=== PATIENT | female | born 1985 ===

== ENCOUNTER 2016-09-20 13:25 | Emergency (ER) | payer OTHER ==
[~2016-09-20] VITALS: Ht 167.6 cm; Wt 88.5 kg
[2016-09-20 13:34] VITALS: BP 168/96
--- NOTE | 2016-09-20 13:51 | ED GENERAL ADULT ---
History of Present Illness General Chief Complaint: General Adult Stated Complaint: ?OD,ANXIETY Source: patient, old records Exam Limitations: no limitations Vital Signs & Intake/Output Vital Signs & Intake/Output Vital Signs Date Time Temp Pulse Resp B/P Pulse O2 O2 Flow FiO2 Ox Delivery Rate 09/20 1414 100 Room Air 09/20 1334 97.3 102 20 168/96 97 Room Air Room Air Allergies Coded Allergies: wheat (Intermediate, GI DISTRESS 09/20/16) Reconcile Medications Bupropion HCl (Bupropion XL) 150 MG TAB.ER.24H 2 TAB PO QAM MENTAL HEALTH ( Reported) Triage Note: PT TO ED WITH C/O "I JUST WELLBUTRIN ON September, TOOK DOSE ON THE LATE SIDE AND THEN TOOK REGULAR MORNING DOSE THIS MORNING, SO IT WAS WITHIN 10 HOURS, SO I'M WORRIED THAT IS TOO MUCH". WELLBUTRIN 300MG DAILY IS NORMAL DOSE. Triage Nurses Notes Reviewed? yes Onset: Abrupt Duration: day(s): (1), constant Timing: recent history Injury Environment: home Severity: mild Severity Numbers: 4 No Modifying Factors: none Associated Symptoms: denies : No Patient currently breastfeeds: No HPI: 30-year-old female with history of depression and anxiety recently started on Wellbutrin 300 mg once a day on September 09 presents emergency room for evaluation today anxious and concerned after she states she forgot to take her dose yesterday morning. She states that she took her 300 mg at 10:00 last night and then took her regular dose at 8:30 this morning. The patient denies wanting to harm herself worsening depression or anxiety. She states that she was in her normal state of health. This morning she states since taking her second dose she has been feeling anxious and shaky. She denies palpitations chest pain fever chills rashes to her skin. She is not taken any other medication on a regular basis denies alcohol or drug use. (JENNIFER SCHULZ,MARY CARMEN) Past History Travel History Traveled to [place] past 21 day No Medical History Any Pertinent Medical History? 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 No (MARY CARMEN MUNSON) Review of Systems Review of Systems Constitutional: Reports: see HPI. All Other Systems: Reviewed and Negative Comments Review of systems: See HPI, All other systems negative. Constitutional, no chills no fever, no malaise HEENT: no sore throat no congestion, no ear pain Cardiovascular: No chest pain , no palpitation Skin, no rashes, no change in skin Respiratory: No dyspnea no cough no sputum GI: No nausea no vomiting, no diarrhea : No dysuria Muscle skeletal: No joint pain, no back pain, no neck pain, Neurologic: No numbness , no headache Psych: stress no anxiety no depression,. Heme/endocrine: No bruising no bleeding Immunology: No lymphadenopathy (MARY CARMEN MUNSON) Physical Exam Physical Exam General Appearance: well developed/nourished, no apparent distress, alert, awake , anxious Comments: Well-developed well-nourished patient in no apparent distress. HEENT: Atraumatic, extraocular motion intact no lesions or rash noted to the oral mucosa Neck: Supple, FROM, Back: FROM Cardiovascular: Regular rate and rhythms no murmurs rubs or gallops, Respiratory: Chest nontender.There were no bony deformities, no asymmetry. No respiratory distress. Patient speaking in full complete sentences. Breath sounds clear to auscultation bilaterally: NO W/R/R Extremities: full range of motion Neuro: Alert and oriented x3 Skin: Warm & dry;No appreciable rash on exposed skin Psych: Mood affect normal, normal memory normal judgment. Core Measures ACS in differential dx? No CVA/TIA Diagnosis: No Severe Sepsis Present: No Septic Shock Present: No (MARY CARMEN MUNSON) Progress Differential Diagnoses I considered the following diagnoses in my evaluation of the patient: [ Wellbutrin overdose, hypertension arrhythmia seizure disorder Plan of Care: Orders Procedure Date/time Status EKG 09/20 1336 Active I discussed with the patient her EKG findings need to hold her dose tomorrow," up with primary care physician in 24-48 hours. Patient clinically appears well EKG reveals a sinus tachycardia at 100 A she denies pain fever chills otherwise clinically appears well she feels comfortable this plan this was not an attempt to harm herself she would feels well otherwise advised return anytime sooner with any concerns cleared for discharge (MARY CARMEN MUNSON) Initial ED EKG: sinus tach at 100, no acute ST segment changes normal axis (MARY CARMEN MUNSON) Departure Departure Time of Disposition: 1402 Disposition: HOME OR SELF CARE Condition: Stable Clinical Impression Primary Impression: Medication administered in error Referrals: REYES FELIX (PCP/Family) Additional Instructions: Take your medications as prescribed. Drink plenty of fluids, follow up with your primary care physician tomorrow, return to the emergency room at anytime sooner with any concerns Departure Forms: Customer Survey General Discharge Information (MARY CARMEN MUNSON) PA/VEHICLE ASSEMBLER Co-Sign Statement Statement: ED Attending supervision documentation- [] I saw and evaluated the patient. I have also reviewed all the pertinent lab results and diagnostic results. I agree with the findings and the plan of care as documented in the PA's/VEHICLE ASSEMBLER's documentation. [X] I have reviewed the ED Record and agree with the PA's/VEHICLE ASSEMBLER's documentation. [] Additions or exceptions (if any) to the PAs/VEHICLE ASSEMBLER's note and plan are summarized below: [] (MEGAN PENNY,ALETHEA Sweet) Critical Care Note Critical Care Note Critical Care Time: non-applicable (MARY CARMEN MUNSON)
[2016-09-20] MEDS ORDERED: BUPROPION XL150 MG PO (13:53)
== END 2016-09-20 14:14 ==
LOC: ERH 13:25
DX: T43.291A Poisoning by other antidepressants, accidental (unintentional), initial encounter (principal); F41.9 Anxiety disorder, unspecified
CPT/HCPCS: 93005; 93010

== ENCOUNTER 2017-07-15 20:19 | Emergency (ER) | payer OTHER ==
[~2017-07-15 20:19] MED LIST: BUPROPION XL150 MG PO
--- NOTE | 2017-07-15 20:53 | ED GI/GU/ABDOMINAL COMPLAINT ---
History of Present Illness General Chief Complaint: General Adult Stated Complaint: "ABD PAIN, NAUSEA" Source: patient Exam Limitations: no limitations Vital Signs & Intake/Output Vital Signs & Intake/Output Vital Signs Date Time Temp Pulse Resp B/P B/P Pulse O2 O2 Flow FiO2 Mean Ox Delivery Rate 07/15 2029 97.9 83 22 147/81 Allergies Coded Allergies: wheat (Intermediate, GI DISTRESS 09/20/16) gluten (CELIACS 07/15/17) Reconcile Medications Albuterol Sulfate (Proair Hfa) 90 MCG HFA.AER.AD 2 PUF INH PRN RESP. ( Reported) Biotin (Unknown Strength) TABLET (Unknown Dose) PO DAILY SUPPLEMENT (Reported ) Dicyclomine Hydrochloride (Bentyl) 10 MG CAPSULE 1 CAP PO TID PRN ABDOMINAL PAIN Lisinopril 20 MG TABLET 1 TAB PO DAILY BP (Reported) Multivitamin With Minerals (Multiple Vitamin) 1 EACH TABLET 1 TAB PO DAILY SUPPLEMENT (Reported) Ondansetron (Zofran Odt) 4 MG TAB.RAPDIS 1 TAB SL TID PRN NAUSEA Triage Note: PER PT ABD PAIN TO RLQ X 2 DAYS DULL NOW SHARP,LMP 06/29/17 ALSO CO NAUSEA NO VOMITING NO FEVERS Triage Nurses Notes Reviewed? yes LMP (ages 10-50): date (06/29) ? N Is pt currently ? No Onset: Abrupt Duration: day(s): (2), constant, continues in ED, getting worse Timing: single episode today Quality/Severity: cramping, dullness Severity Numbers: 6 Location: right lower quadrant, right upper quadrant Radiation: no radiation Activities at Onset: none Prior Abdominal Problems: none Past Sexual History: Unobtainable at this time No Modifying Factors: none Modifying Factors: Worsens With: movement, palpation. Associated Symptoms: abdominal pain, nausea/vomiting, ALTERNATING DIArrhea and constipation HPI: 31 year old female with hx of celiacs disease. presents for eval of abdominal pain. pain stated 2 days ago and has been constant. pain loctaed in ruq and rlq and does nto radiate. described as cramping and dull. 12/11 currently. she has not take any meds for pain. associated with nausea but no vomiting. she also reprots alternating diarrhea and constipation for weeks. she has a hx of celiacs but does not see gi or follow a gluten free diet. no melena, fever, back jazmine, urinary symptoms, vaginal bleeding, chest pain or sob, or rash. (Yao Marks) Past History Travel History Traveled to [place] past 21 day No Medical History Any Pertinent Medical History? 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 No (Yao Marks) Review of Systems Review of Systems Constitutional: Reports: no symptoms. EENTM: Reports: no symptoms. Respiratory: Reports: no symptoms. Cardiovascular: Reports: no symptoms. GI: Reports: see HPI, abdominal pain, nausea. Genitourinary: Reports: no symptoms. Musculoskeletal: Reports: no symptoms. Skin: Reports: no symptoms. Neurological/Psychological: Reports: no symptoms. Hematologic/Endocrine: Reports: no symptoms. Immunologic/Allergic: Reports: no symptoms. All Other Systems: Reviewed and Negative (Yao Marks) Physical Exam Physical Exam General Appearance: well developed/nourished, no apparent distress, alert, awake Head: atraumatic, normal appearance Eyes: Bilateral: normal appearance, PERRL, EOMI, normal inspection. Ears, Nose, Throat, Mouth: hearing grossly normal, moist mucous membrane Neck: normal inspection, supple, full range of motion Respiratory: normal breath sounds, chest non-tender, no respiratory distress, lungs clear Cardiovascular: regular rate/rhythm, normal peripheral pulses Peripheral Pulses: 2+ radial (R), 2+ radial (L) Gastrointestinal: normal bowel sounds, non-tender, no organomegaly, tenderness ( ruq and rlq) Back: normal inspection, normal range of motion, no cvat Extremities: normal range of motion Neurologic/Psych: no motor/sensory deficits, awake, alert, oriented x 3, normal gait Skin: intact, normal color, warm/dry Core Measures ACS in differential dx? No Sepsis Present: No Sepsis Focused Exam Completed? No (Yao Marks) Progress Differential Diagnosis: appendicitis, biliary colic, bowel obstruction, cholecystitis, diverticulitis, ectopic , gastritis, kidney stone, ovarian cyst, ovarian torsion, pancreatitis, PID/cervicitis, peptic ulcer, PUD/ GERD, SBO, UTI/pyelo, ibs, celiac Plan of Care: Orders Procedure Date/time Status URINALYSIS 07/15 2213 Complete LIPASE 07/15 2030 Complete HEPATIC FUNCTION PANEL 07/15 2030 Complete HUMAN BETA HCG SCREEN 07/15 2030 Complete CBC WITHOUT DIFFERENTIAL 07/15 2030 Complete BASIC METABOLIC PANEL 07/15 2030 Complete AMYLASE 07/15 2030 Complete Laboratory Tests 07/15/17 2255: Urine Color YEL, Urine Clarity CLEAR, Urine pH 7.0, Ur Specific Hines <= 1.005 , Urine Protein NEG, Urine Ketones NEG, Urine Nitrite NEG, Urine Bilirubin NEG, Urine Urobilinogen 0.2, Ur Leukocyte Esterase NEG, Ur Microscopic EXAM NOT REQUIRED, Urine Hemoglobin NEG, Urine Glucose NEG 07/15/172100: Total Beta HCG Cancelled 07/15/17 2100: Anion Gap 16, Estimated GFR > 60, BUN/Creatinine Ratio 23.3, Glucose 92, Calcium 10.3 H, Total Bilirubin 0.2, Direct Bilirubin 0.2, AST 21, ALT 33, Alkaline Phosphatase 63, Total Protein 8.1, Albumin 4.8, Amylase 68, Lipase 167, Total Beta HCG NEGATIVE, CBC w Diff NO MAN DIFF REQ, RBC 4.26, MCV 93.8, MCH 30.8, RDW 13.7, MPV 9.5, Gran % 60.4, Lymphocytes % 29.0, Monocytes % 8.0, Eosinophils % 2.1, Basophils % 0.5, Absolute Granulocytes 5.7, Absolute Lymphocytes 2.7, Absolute Monocytes 0.8 H, Absolute Eosinophils 0.2, Absolute Basophils 0, PUBS MCHC 32.8 L pt seen and evaluated, she has rlq and ruq pain for 2 days. she appearts clinicaly well. blood work ct and ua are unremarkable. on reeval after toradol and zofran pt is feeling better, she abdomen remains soft with only mild tendrness. she is able to tolertae food and fluids by mouth in the ed. advised her to avoid gluten and greasy fatty foods. tylenol and ibbuprofen as needed. bentyl for abdominal pain zofran for nausea. follwo up with gi. discussed return precautions pt is nontoxic appearing and agrees,. Diagnostic Imaging: Viewed by Me: CT Scan. Discussed w/RAD: CT Scan. Radiology Impression: PATIENT: EUSEBIO LAY PRESENT AGE: 31 PATIENT ACCOUNT NO: [id number] : 86 LOCATION: [facility] ORDERING PHYSICIAN: Yao SCHULZ SERVICE DATE: 07/15/17 EXAM TYPE: CAT - CT ABD & PELVIS W IV CONTRAST EXAMINATION: CT ABDOMEN AND PELVIS WITH CONTRAST CLINICAL INFORMATION: Right upper quadrant pain. Right lower quadrant pain. COMPARISON: None TECHNIQUE: Multidetector volumetric imaging was performed of the abdomen and pelvis following IV administration of 95 mL of Optiray 320 intravenous contrast. Sagittal and coronal reformatted images were obtained on the technologist's workstation. DLP: 565.96 mGy-cm FINDINGS: LUNG BASES: The visualized lung bases are unremarkable. LIVER, GALLBLADDER, AND BILIARY TREE: The liver is normal in size, shape, and attenuation. No focal hepatic lesion or biliary ductal dilatation is present. Gallbladder is contracted. No bile duct dilatation. PANCREAS: Unremarkable. SPLEEN: Unremarkable. ADRENAL GLANDS: Unremarkable. KIDNEYS AND URETERS: The kidneys are normal in size, shape, and attenuation. No hydronephrosis, hydroureter, or calculi seen. No perinephric stranding. BLADDER: Unremarkable. GASTROINTESTINAL TRACT: The small and large bowel are unremarkable. The appendix is unremarkable. ABDOMINAL WALL: No significant hernia is appreciated. LYMPH NODES: Normal. VASCULAR: Unremarkable. PELVIC VISCERA: Uterus is anteverted. There is trace fluid in the cul-de-sac. No adnexal abnormality. OSSEOUS STRUCTURES: Unremarkable. IMPRESSION: Normal CT scan abdomen and pelvis. Normal appendix. DICTATED BY: Tanner Cardenas MD DATE/TIME DICTATED:07/15/172226 GAS CUTTING MACHINE OPERATOR:INÉS DATE/TIME TRANSCRIBED:2226 CONFIDENTIAL, DO NOT COPY WITHOUT APPROPRIATE AUTHORIZATION. Initial ED EKG: none (Chadd SCHULZ,Yao) Departure Departure Disposition: HOME OR SELF CARE Condition: Stable Clinical Impression Primary Impression: Abdominal pain Qualifiers: Abdominal location: generalized Qualified Code: R10.84 - Generalized abdominal pain Referrals: Mona PENNY,José SCHULZ,Brianda Izaguirre (PCP/Family) Additional Instructions: Rest. Plenty of fluids. Tylenol as needed for pain. Bentyl can also be used as needed for abdominal pain. Zofran for nausea. Make a follow-up with provided GI doctor as soon as possible. Monitor symptoms return with any concerns. Departure Forms: Customer Survey General Discharge Information Prescriptions: Current Visit Scripts Dicyclomine Hydrochloride (Bentyl) 1 CAP PO TID PRN ABDOMINAL PAIN #10 CAP Ondansetron (Zofran Odt) 1 TAB SL TID PRN NAUSEA #15 TAB (Yao Marks) PA/APPIAN BPM DEVELOPER Co-Sign Statement Statement: ED Attending supervision documentation- [] I saw and evaluated the patient. I have also reviewed all the pertinent lab results and diagnostic results. I agree with the findings and the plan of care as documented in the PA's/APPIAN BPM DEVELOPER's documentation. [x] I have reviewed the ED Record and agree with the PA's/APPIAN BPM DEVELOPER's documentation. [] Additions or exceptions (if any) to the PAs/APPIAN BPM DEVELOPER's note and plan are summarized below: [] (Heladio PENNY,Thierry Moser)
[2017-07-15 21:21] LABS: ABSOLUTE BASOPHIL COUNT 0 /CUMM (0.0-0.2); ABSOLUTE EOSINOPHIL COUNT 0.2 /CUMM (0.0-0.7); ABSOLUTE GRANULOCYTE CT 5.7 /CUMM (1.4-6.5); ABSOLUTE LYMPH COUNT 2.7 /CUMM (1.2-3.4); ABSOLUTE MONOCYTE COUNT 0.8 /CUMM (0.10-0.60); BASOPHIL % 0.5 % (0.0-2.0); EOSINOPHIL % 2.1 % (0-5); GRANULOCYTE % 60.4 % (42.2-75.2); MEAN CORPUSCULAR HGB 30.8 PG (27.0-31.0); MEAN CORPUSCULAR HGB CONC 32.8 G/DL (33.0-37.0); MEAN CORPUSCULAR VOLUME 93.8 FL (81.0-99.0); MEAN PLATELET VOLUME 9.5 FL (7.4-10.4); PLATELET COUNT 233 /CUMM (130-400); RBC DISTRIBUTION WIDTH 13.7 % (11.5-14.5); RED BLOOD CELL CT 4.26 /CUMM (4.20-5.40); WHITE BLOOD CELL COUNT 9.4 /CUMM (4.8-10.8)
--- NOTE | 2017-07-15 22:34 | CT SCAN REPORT ---
EXAMINATION: CT ABDOMEN AND PELVIS WITH CONTRAST CLINICAL INFORMATION: Right upper quadrant pain. Right lower quadrant pain. COMPARISON: None TECHNIQUE: Multidetector volumetric imaging was performed of the abdomen and pelvis following IV administration of 95 mL of Optiray 320 intravenous contrast. Sagittal and coronal reformatted images were obtained on the technologist's workstation. DLP: 565.96 mGy-cm FINDINGS: LUNG BASES: The visualized lung bases are unremarkable. LIVER, GALLBLADDER, AND BILIARY TREE: The liver is normal in size, shape, and attenuation. No focal hepatic lesion or biliary ductal dilatation is present. Gallbladder is contracted. No bile duct dilatation. PANCREAS: Unremarkable. SPLEEN: Unremarkable. ADRENAL GLANDS: Unremarkable. KIDNEYS AND URETERS: The kidneys are normal in size, shape, and attenuation. No hydronephrosis, hydroureter, or calculi seen. No perinephric stranding. BLADDER: Unremarkable. GASTROINTESTINAL TRACT: The small and large bowel are unremarkable. The appendix is unremarkable. ABDOMINAL WALL: No significant hernia is appreciated. LYMPH NODES: Normal. VASCULAR: Unremarkable. PELVIC VISCERA: Uterus is anteverted. There is trace fluid in the cul-de-sac. No adnexal abnormality. OSSEOUS STRUCTURES: Unremarkable. IMPRESSION: Normal CT scan abdomen and pelvis. Normal appendix.
[2017-07-15] MEDS ORDERED: LISINOPRIL20 M1 PO (22:57)
[2017-07-15] MEDS ORDERED: MULTIPLE VITAM1 EAC1 PO (22:59)
[2017-07-15] MEDS ORDERED: BIOTIN5 M2 PO (22:59)
[2017-07-15] MEDS ORDERED: PROAIR HFA8.5 GM INH (22:59)
[2017-07-15] MEDS ORDERED: BENTYL10 M1 PO (23:23)
[2017-07-15] MEDS ORDERED: ZOFRAN ODT4 M1 SL (23:23)
[2017-07-15 23:30] VITALS: BP 130/82
== END 2017-07-15 23:40 ==
LOC: ERH 20:19
PROVIDERS: Pediatrics
DX: R10.31 Right lower quadrant pain (principal); R10.11 Right upper quadrant pain
CPT/HCPCS: 74177; 81003; 96374; 96375; J1885; J2405